=== PATIENT | female | born 1990 | race Caucasian/White ===

== ENCOUNTER 2017-12-03 19:03 | Emergency (ER) | payer MEDICAID ==
[~2017-12-03] VITALS: Ht 172.7 cm; Wt 75.0 kg
[2017-12-03 19:50] LABS: BASOPHILS % (AUTO) 0.3 % (0-1); EOSINOPHILS # (AUTO) 0.1 X10'3 (0-0.9); HEMATOCRIT 46.7 % (35.0-45.0); HEMOGLOBIN 16.2 g/dl (12.0-16.0); LYMPHOCYTES # (AUTO) 1.2 X10'3 (1.1-4.8); LYMPHOCYTES % (AUTO) 18.7 % (21-51); MEAN CORPUSCULAR HEMOGLOBIN 30.4 PG (27.0-31.0); MEAN CORPUSCULAR HGB CONC 34.6 % (33.0-36.5); MEAN CORPUSCULAR VOLUME 88.1 FL (78-98); MEAN PLATELET VOLUME 9.8 FL (7.4-10.4); MONOCYTES # (AUTO) 0.6 X10'3 (0-0.9); MONOCYTES % (AUTO) 9.3 % (2-12); NEUTROPHILS # (AUTO) 4.6 X10'3 (1.8-7.7); NEUTROPHILS % (AUTO) 70.7 % (42-75); PLATELET COUNT 263 X10'3 (140-440); RED BLOOD COUNT 5.31 X10'6 (4.20-5.60); RED CELL DISTRIBUTION WIDTH 12.7 % (11.5-14.5); WHITE BLOOD COUNT 6.6 X10'3 (4.5-11.0)
[2017-12-03] MEDS ORDERED: normal saline 1000ML IV soln IVB ONE (19:55)
[2017-12-03] MEDS ORDERED: ondansetron/PF 4mg/2ml inj IV ONE (19:55)
[2017-12-03] MEDS ORDERED: ketorolac trometh. 30mg/ml inj. IV ONE (19:55)
[2017-12-03 20:04] LABS: ALANINE AMINOTRANSFERASE 15 U/L (12-78); ALBUMIN 4.2 G/DL (3.4-5.0); ALKALINE PHOSPHATASE 88 IU/L (46-116); ANION GAP 9 (8-16); ASPARTATE AMINO TRANSFERASE 15 U/L (10-37); BILIRUBIN,TOTAL 0.4 MG/DL (0.1-1.0); BLOOD UREA NITROGEN 10 MG/DL (7-18); BUN/CREATININE RATIO 13.2 (6.6-38.0); CALCIUM 9.5 MG/DL (8.5-10.1); CHLORIDE 102 MMOL/L (99-107); CREATININE 0.76 MG/DL (0.40-0.90); GLUCOSE 100 MG/DL (70-104); POTASSIUM 3.4 MMOL/L (3.5-5.1); SODIUM 140 MMOL/L (135-145); TOTAL CARBON DIOXIDE 29.5 MMOL/L (24-32); TOTAL PROTEIN 8.3 G/DL (6.4-8.2); eGFR > 90 ML/MIN
[2017-12-03] MEDS ORDERED: ondansetron/PF 4mg/2ml inj IV PRN (20:40)
[2017-12-03] MEDS: morphine 4 MG/ML inj SYRINge IV PRN ×2 (20:41→21:50)
[2017-12-03 21:37] LABS: CLARITY,URINE CLEAR (Clear); COLOR,URINE YELLOW (Yellow); GLUCOSE, URINE 100 mg/dl (Neg); KETONES,URINE NEGATIVE (Neg); LEUKOCYTE ESTERASE ,URINE NEGATIVE (Neg); NITRITES, URINE NEGATIVE (Neg); OCCULT BLOOD,URINE TRACE-INTACT (Neg); PROTEIN,URINE NEGATIVE (Neg); URINE HCG NEGATIVE (NEG); UROBILINOGEN,URINE 0.2 E.U/dL (0.2-1.0)
[2017-12-03 21:59] LABS: BACTERIA,URINE FEW /HPF (Neg); RBC,URINE 0-2 /HPF (0-2); SQUAMOUS EPITHELIAL CELL,UR FEW /LPF (FEW); UA COLLECTION TYPE CLN CATCH MIDSTREAM; WBC,URINE 0-4 /HPF (0-4)
[2017-12-03] MEDS ORDERED: HYDR-3965 PO (22:18)
[2017-12-03] MEDS ORDERED: METH500T PO (22:18)
[2017-12-03 22:45] VITALS: BP 114/63
== END 2017-12-03 22:47 | disposition home or self-care (01) ==
LOC: ER 19:03
DX: R10.31 Right lower quadrant pain (principal); N20.0 Calculus of kidney
CPT/HCPCS: 36415; 74176; 80053; 81001; 81025; 85025; 96374; 96375; 96376; 99285; J1885; J2270; J2405; J7030

== ENCOUNTER 2018-08-03 12:30 | Emergency (ER) | payer MEDICAID ==
[~2018-08-03] VITALS: Ht 172.7 cm; Wt 71.0 kg
[~2018-08-03 12:30] MED LIST: METH500T PO
[2018-08-03 13:05] VITALS: BP 101/64
--- NOTE | 2018-08-03 14:09 | NUR ---
JOE PA AT CHAIR SIDE TO IRRIGATE LAC TO RT 5TH DIGIT, APPLY STERISTRIPS, PT LULU WELL
== END 2018-08-03 14:19 | disposition home or self-care (01) ==
LOC: ER 12:31
DX: S61.216A Laceration without foreign body of right little finger without damage to nail, initial encounter (principal); W45.8XXA Other foreign body or object entering through skin, initial encounter; Y93.89 Activity, other specified; Y92.89 Other specified places as the place of occurrence of the external cause; Y99.8 Other external cause status
CPT/HCPCS: 99282

== ENCOUNTER 2019-03-04 22:58 | Emergency (ER) | payer MEDICAID ==
[~2019-03-04] VITALS: Ht 172.7 cm; Wt 72.7 kg
[2019-03-04 22:59] VITALS: BP 116/80
[2019-03-04] MEDS ORDERED: normal saline 1000ML IV soln IVB ONE (23:25)
[2019-03-04 23:44] LABS: BASOPHILS % (AUTO) 0.5 % (0-1); EOSINOPHILS % (AUTO) 0.3 % (0-6); HEMATOCRIT 43.4 % (35.0-45.0); HEMOGLOBIN 14.7 g/dl (12.0-16.0); LYMPHOCYTES # (AUTO) 1.1 X10'3 (1.1-4.8); LYMPHOCYTES % (AUTO) 12.6 % (21-51); MEAN CORPUSCULAR HGB CONC 33.9 g/dL (33.0-36.5); MEAN CORPUSCULAR VOLUME 88.3 FL (78-98); MEAN PLATELET VOLUME 9.4 FL (7.4-10.4); MONOCYTES # (AUTO) 0.7 X10'3 (0-0.9); MONOCYTES % (AUTO) 7.5 % (2-12); NEUTROPHILS % (AUTO) 79.1 % (42-75); PLATELET COUNT 285 X10'3 (140-440); RED BLOOD COUNT 4.92 X10'6 (4.20-5.60); WHITE BLOOD COUNT 8.8 X10'3 (4.5-11.0)
[2019-03-05 00:07] LABS: ALANINE AMINOTRANSFERASE 16 U/L (12-78); ALBUMIN 4.2 G/DL (3.4-5.0); ALBUMIN/GLOBULIN RATIO 1.3 (1.1-1.5); ALKALINE PHOSPHATASE 75 IU/L (46-116); ANION GAP 9 (8-16); ASPARTATE AMINO TRANSFERASE 9 U/L (10-37); BILIRUBIN,TOTAL 0.3 MG/DL (0.1-1.0); BLOOD UREA NITROGEN 13 MG/DL (7-18); BUN/CREATININE RATIO 13.4 (6.6-38.0); CALCIUM 9.3 MG/DL (8.5-10.1); CHLORIDE 107 MMOL/L (99-107); CREATININE 0.97 MG/DL (0.40-0.90); GLUCOSE 135 MG/DL (70-104); MAGNESIUM 1.8 MG/DL (1.5-2.4); POTASSIUM 3.9 MMOL/L (3.5-5.1); SODIUM 140 MMOL/L (135-145); TOTAL CARBON DIOXIDE 23.7 MMOL/L (24-32); TOTAL PROTEIN 7.5 G/DL (6.4-8.2); eGFR 68 ML/MIN
[2019-03-05] MEDS ORDERED: LORazepam 2 mg/ml vial IV ONE (00:30)
[2019-03-05] MEDS ORDERED: magnesium oxide 400mg tablet PO ONE (01:00)
== END 2019-03-05 01:16 | disposition home or self-care (01) ==
LOC: ER 22:58
DX: T63.441A Toxic effect of venom of bees, accidental (unintentional), initial encounter (principal); I45.81 Long QT syndrome; F10.99 Alcohol use, unspecified with unspecified alcohol-induced disorder; Z87.442 Personal history of urinary calculi; Z88.1 Allergy status to other antibiotic agents; Z79.899 Other long term (current) drug therapy; Y92.89 Other specified places as the place of occurrence of the external cause; Y90.9 Presence of alcohol in blood, level not specified
CPT/HCPCS: 36415; 80053; 83735; 85025; 93005; 96374; 99284; J2060; J7030

== ENCOUNTER 2020-04-01 15:28 | Emergency (ER) | payer MEDICAID ==
[~2020-04-01] VITALS: Ht 172.7 cm; Wt 65.5 kg
[2020-04-01] MEDS ORDERED: ondansetron/PF 4mg/2ml inj IV ONE (16:00)
[2020-04-01] MEDS ORDERED: normal saline 1000ML IV soln IVB ONE (16:00)
[2020-04-01] MEDS ORDERED: ondansetron 4mg rapidly disintigrating tab PO ONE (16:00)
[2020-04-01] MEDS ORDERED: ketorolac trometh inj. 60 MG/2 ML VIAL IM ONE (16:00)
[2020-04-01] MEDS ORDERED: HYDROcodone/acetaminophen 10/325mg tab PO ONE (16:00)
[2020-04-01 16:27] LABS: BASOPHILS % (AUTO) 0.5 % (0-1); EOSINOPHILS # (AUTO) 0.2 X10'3 (0-0.9); HEMOGLOBIN 12.9 g/dl (12.0-16.0); LYMPHOCYTES # (AUTO) 1.6 X10'3 (1.1-4.8); LYMPHOCYTES % (AUTO) 15.5 % (21-51); MEAN CORPUSCULAR HEMOGLOBIN 28.8 PG (27.0-31.0); MEAN CORPUSCULAR VOLUME 87.2 FL (78-98); MEAN PLATELET VOLUME 7.9 FL (7.4-10.4); MONOCYTES # (AUTO) 1.3 X10'3 (0-0.9); MONOCYTES % (AUTO) 12.7 % (2-12); NEUTROPHILS % (AUTO) 69.3 % (42-75); PLATELET COUNT 305 X10'3 (140-440); RED BLOOD COUNT 4.47 X10'6 (4.20-5.60); RED CELL DISTRIBUTION WIDTH 12.5 % (11.5-14.5)
[2020-04-01 16:30] LABS: CLARITY,URINE TURBID (Clear); COLOR,URINE YELLOW (Yellow); GLUCOSE, URINE NEGATIVE (Neg); KETONES,URINE NEGATIVE (Neg); LEUKOCYTE ESTERASE ,URINE NEGATIVE (Neg); NITRITES, URINE NEGATIVE (Neg); OCCULT BLOOD,URINE LARGE (Neg); PH,URINE 5.5 (4.8-8.0); PROTEIN,URINE 30 mg/dl (Neg); UROBILINOGEN,URINE 0.2 E.U/dL (0.2-1.0)
[2020-04-01 16:31] LABS: URINE HCG NEGATIVE (NEG)
[2020-04-01 16:37] LABS: UA COLLECTION TYPE CLN CATCH MIDSTREAM
[2020-04-01 16:38] LABS: MUCUS STRANDS MANY /LPF (Neg); SQUAMOUS EPITHELIAL CELL,UR MANY /LPF (FEW)
[2020-04-01 16:40] LABS: BACTERIA,URINE FEW /HPF (Neg); CAL OXALATE CRYSTALS FEW /HPF (NEGATIVE); TRANSITIONAL EPI CELLS,URINE FEW /HPF; WBC,URINE 0-4 /HPF (0-4)
[2020-04-01 16:42] LABS: RBC,URINE TNTC /HPF (0-2)
[2020-04-01 16:42] LABS: ALANINE AMINOTRANSFERASE 17 U/L (12-78); ALBUMIN 3.7 G/DL (3.4-5.0); ALBUMIN/GLOBULIN RATIO 0.9 (1.1-1.5); ALKALINE PHOSPHATASE 73 IU/L (46-116); ANION GAP 7 (8-16); ASPARTATE AMINO TRANSFERASE 20 U/L (10-37); BILIRUBIN,TOTAL 0.4 MG/DL (0.1-1.0); BLOOD UREA NITROGEN 15 MG/DL (7-18); BUN/CREATININE RATIO 16.5 (6.6-38.0); CALCIUM 9.5 MG/DL (8.5-10.1); CHLORIDE 101 MMOL/L (99-107); CREATININE 0.91 MG/DL (0.40-0.90); GLUCOSE 94 MG/DL (70-104); LIPASE < 50 U/L (73-393); POTASSIUM 3.9 MMOL/L (3.5-5.1); SODIUM 140 MMOL/L (135-145); TOTAL CARBON DIOXIDE 31.9 MMOL/L (24-32); TOTAL PROTEIN 7.8 G/DL (6.4-8.2); eGFR 73 ML/MIN
[2020-04-01] MEDS: morphine 4 MG/ML inj SYRINge IV PRN ×3 (18:43→19:40)
--- NOTE | 2020-04-01 19:51 | NUR ---
DR DONAHUE UPDATED THAT PT PAIN IS IMPROVING AND NO NAUSEA AND THAT SHE IS ANXIOUS TO DC. HE WILL COMPLETE HER DC PAPERWORK SHORTLY. PTS SISTER AWAITING HER IN PARKING LOT. STABLE VS.
[2020-04-01] MEDS ORDERED: ONDA4TAB6 PO (19:56)
[2020-04-01] MEDS ORDERED: HYDR-4353 PO (19:56)
[2020-04-01] MEDS ORDERED: IBUP-1986 PO (19:56)
[2020-04-01 20:22] VITALS: BP 110/70
== END 2020-04-01 20:24 | disposition home or self-care (01) ==
LOC: ER 15:29
DX: N20.1 Calculus of ureter (principal); Z87.442 Personal history of urinary calculi; Z88.1 Allergy status to other antibiotic agents
CPT/HCPCS: 36415; 74176; 80053; 81001; 81025; 83690; 85025; 96361; 96374; 96375; 96376; 99284; J1885; J2270; J2405; J7030

== ENCOUNTER 2023-04-17 20:18 | Emergency (ER) | payer MEDICAID ==
[~2023-04-17] VITALS: Ht 172.7 cm; Wt 68.2 kg
[~2023-04-17 20:18] MED LIST changes: +IBUP-1986 PO; +ONDA4TAB6 PO
[2023-04-17] MEDS ORDERED: hydrOXYzine 25 MG tablet PO ONE (21:35)
[2023-04-17] MEDS ORDERED: HYDR-3686 PO (21:35)
[2023-04-17] MEDS ORDERED: ONDA4TAB12 PO (21:35)
[2023-04-17] MEDS ORDERED: ondansetron 4mg rapidly disintigrating tab PO ONE (21:35)
[2023-04-17 21:43] VITALS: BP 130/75; PULSE 97; RESP 17; TEMP 98.9; O2SAT 98
== END 2023-04-17 21:45 | disposition home or self-care (01) ==
LOC: ER 20:19
DX: F11.23 Opioid dependence with withdrawal (principal); F15.10 Other stimulant abuse, uncomplicated; G47.00 Insomnia, unspecified; L29.9 Pruritus, unspecified; F41.9 Anxiety disorder, unspecified; Z72.89 Other problems related to lifestyle; Z87.442 Personal history of urinary calculi; Z88.1 Allergy status to other antibiotic agents; Z79.899 Other long term (current) drug therapy
CPT/HCPCS: 99283; Q0177

== ENCOUNTER 2023-10-13 12:22 | Emergency (ER) | payer MEDICAID, OTHER ==
[~2023-10-13] VITALS: Ht 172.7 cm; Wt 84.0 kg
[~2023-10-13 12:22] MED LIST changes: +ONDA4TAB12 PO
[2023-10-13 12:28] VITALS: BP 120/80; PULSE 92; RESP 18; TEMP 98; O2SAT 98
[2023-10-13] MEDS ORDERED: CYCL-1 PO (12:32)
[2023-10-13] MEDS ORDERED: NAPR-56 PO (12:32)
== END 2023-10-13 13:13 | disposition home or self-care (01) ==
LOC: ER 12:22
DX: M54.2 Cervicalgia (principal); Z88.1 Allergy status to other antibiotic agents; V29.99XA Rider (driver) (passenger) of other motorcycle injured in unspecified traffic accident, initial encounter; Y93.89 Activity, other specified; Y92.89 Other specified places as the place of occurrence of the external cause; Y99.8 Other external cause status
CPT/HCPCS: 99283

== ENCOUNTER 2023-10-15 13:36 | Outpatient (CLI) | payer MEDICAID ==
[~2023-10-15 13:36] MED LIST changes: +CYCL-1 PO; +NAPR-56 PO
== END 2023-10-15 23:59 | disposition home or self-care (01) ==
LOC: RAD 13:36
PROVIDERS: ATTEND Family Medicine
DX: M54.2 Cervicalgia (principal)
CPT/HCPCS: 72050

== ENCOUNTER 2024-01-15 21:04 | Emergency (ER) | payer MEDICAID ==
[~2024-01-15] VITALS: Ht 172.7 cm; Wt 82.2 kg
[~2024-01-15 21:04] MED LIST changes: -NAPR-56 PO; +ONDA-243 PO; -ONDA4TAB12 PO
[2024-01-15] MEDS: LIDOcaine 1% 30ml preserv. free vial IJ STA (21:39)
[2024-01-15] MEDS ORDERED: DOXY150T9 PO (22:23)
[2024-01-15 22:48] VITALS: BP 108/68; PULSE 60; RESP 16; TEMP 98.5; O2SAT 98
== END 2024-01-15 22:52 | disposition home or self-care (01) ==
LOC: ER 21:05
DX: S60.941A Unspecified superficial injury of left index finger, initial encounter (principal); L02.512 Cutaneous abscess of left hand; Z88.1 Allergy status to other antibiotic agents; Z79.899 Other long term (current) drug therapy; Z79.1 Long term (current) use of non-steroidal anti-inflammatories (NSAID); Z87.442 Personal history of urinary calculi; Z72.89 Other problems related to lifestyle; X58.XXXA Exposure to other specified factors, initial encounter; Y93.89 Activity, other specified; Y92.89 Other specified places as the place of occurrence of the external cause; Y99.8 Other external cause status
CPT/HCPCS: 64450; 73120; 99284; A6222; A6258

== ENCOUNTER 2024-01-26 15:14 | Emergency (ER) | payer MEDICAID ==
[~2024-01-26] VITALS: Ht 172.7 cm; Wt 82.6 kg
[~2024-01-26 15:14] MED LIST changes: +DOXY150T9 PO
[2024-01-26 15:22] VITALS: TEMP 98.4
[2024-01-26] MEDS ORDERED: CHLO118L3 TOP (16:15)
[2024-01-26] MEDS ORDERED: SULF1TAB49 PO (16:15)
[2024-01-26] MEDS ORDERED: CEPH-585 PO (16:15)
[2024-01-26 16:18] VITALS: BP 130/72; PULSE 74; RESP 16; O2SAT 99
== END 2024-01-26 16:19 | disposition home or self-care (01) ==
LOC: ER 15:15
DX: S60.451A Superficial foreign body of left index finger, initial encounter (principal); L08.9 Local infection of the skin and subcutaneous tissue, unspecified; Z87.442 Personal history of urinary calculi; Z72.89 Other problems related to lifestyle; Z88.1 Allergy status to other antibiotic agents; Z79.899 Other long term (current) drug therapy; W45.8XXA Other foreign body or object entering through skin, initial encounter; Y93.89 Activity, other specified; Y92.89 Other specified places as the place of occurrence of the external cause; Y99.8 Other external cause status
CPT/HCPCS: 99283

== ENCOUNTER 2024-01-31 09:57 | Emergency (ER) | payer MEDICAID ==
[~2024-01-31] VITALS: Ht 172.7 cm; Wt 82.4 kg
[~2024-01-31 09:57] MED LIST changes: +CEPH-585 PO; +CHLO118L3 TOP; -DOXY150T9 PO; +SULF1TAB49 PO
[2024-01-31 11:25] VITALS: BP 116/71; PULSE 83; RESP 16; TEMP 98.1; O2SAT 100
== END 2024-01-31 11:29 | disposition home or self-care (01) ==
LOC: ER 09:57
DX: S60.45 Superficial foreign body of fingers (principal); Z88.1 Allergy status to other antibiotic agents; Z79.2 Long term (current) use of antibiotics; Z79.1 Long term (current) use of non-steroidal anti-inflammatories (NSAID); Z79.899 Other long term (current) drug therapy; W45.8XXD Other foreign body or object entering through skin, subsequent encounter
CPT/HCPCS: 99281; 99282; A6258

== ENCOUNTER 2024-03-31 21:27 | Emergency (ER) | payer MEDICAID ==
[~2024-03-31] VITALS: Ht 172.7 cm; Wt 80.6 kg
[~2024-03-31 21:27] MED LIST changes: -CEPH-585 PO; -SULF1TAB49 PO
[2024-03-31 21:30] VITALS: PULSE 66; RESP 18; TEMP 98.4; O2SAT 100
[2024-03-31] MEDS: cephalexin 250mg capsule PO ONE (21:48)
[2024-03-31] MEDS ORDERED: IBUP-1984 PO (21:49)
[2024-03-31] MEDS: ibuprofen tablet 400 MG TABLET PO ONE (21:49)
[2024-03-31] MEDS ORDERED: CEPH-585 PO (21:49)
== END 2024-03-31 21:55 | disposition home or self-care (01) ==
LOC: ER 21:28
DX: L98.0 Pyogenic granuloma (principal); Z88.1 Allergy status to other antibiotic agents; Z79.899 Other long term (current) drug therapy
CPT/HCPCS: 99283; A6258

== ENCOUNTER 2024-05-13 20:03 | Emergency (ER) | payer MEDICAID ==
[~2024-05-13] VITALS: Ht 172.7 cm; Wt 80.7 kg
[2024-05-13 20:14] VITALS: BP 106/65; PULSE 97; RESP 14; O2SAT 99
[2024-05-13 21:40] VITALS: TEMP 99.3
[2024-05-13 22:12] LABS: STREP A SCREEN NEGATIVE (Neg)
== END 2024-05-13 21:42 | disposition home or self-care (01) ==
LOC: ER 20:04
DX: J04.0 Acute laryngitis (principal); Z79.899 Other long term (current) drug therapy; Z79.1 Long term (current) use of non-steroidal anti-inflammatories (NSAID)
CPT/HCPCS: 87081; 87880; 99283

== ENCOUNTER 2024-07-08 15:35 | Emergency (ER) | payer MEDICAID ==
[~2024-07-08] VITALS: Ht 172.7 cm; Wt 80.2 kg
[2024-07-08] MEDS: dexamethasone sod phosphate 10mg/ml inj PO STA (17:34)
[2024-07-08] MEDS: ketorolac trometh 30MG/ML vial 30 MG/ML VIAL IM ONE (17:36)
[2024-07-08] MEDS ORDERED: BROM118S60 PO (17:40)
[2024-07-08] MEDS ORDERED: ACET1TAB96 PO ×2 (17:40→17:41)
[2024-07-08] MEDS ORDERED: ONDA-243 PO (17:40)
[2024-07-08 18:07] VITALS: BP 129/80; PULSE 88; RESP 17; TEMP 99.1; O2SAT 99
== END 2024-07-08 18:08 | disposition home or self-care (01) ==
LOC: ER 15:36
DX: J11.1 Influenza due to unidentified influenza virus with other respiratory manifestations (principal); Z79.1 Long term (current) use of non-steroidal anti-inflammatories (NSAID); Z79.899 Other long term (current) drug therapy; Z87.442 Personal history of urinary calculi; Z72.89 Other problems related to lifestyle; Z20.822 Contact with and (suspected) exposure to COVID-19
CPT/HCPCS: 36415; 71045; 87502; 87503; 87811; 96372; 99284; J1100; J1885

== ENCOUNTER 2024-11-15 18:41 | Emergency (ER) | payer MEDICAID ==
[~2024-11-15] VITALS: Ht 172.7 cm; Wt 69.9 kg
[~2024-11-15 18:41] MED LIST changes: +ACET1TAB96 PO; +BROM118S60 PO
[2024-11-15 18:54] VITALS: BP 100/62; PULSE 79; O2SAT 99
--- NOTE | 2024-11-15 20:05 | Physician Documentation ---
History of Present Illness ~ Chief Complaint: Shoulder pain Stated Complaint: SHOLDER PAIN Time Seen by MD: 19:45 Primary Medical Doctor: [facility] HPI This 34-year-old female with history of injury to right shoulder presents with increased pain to right shoulder worse in the posterior shoulder after aggravating it two days at work, patient reports severe tension in the shoulder and in the able to put my arm straight down. Patient reports pain limits range of motion shoulder. Patient reports no recent acute injury other than frequent use of lifting and rolling patient is at her work. Patient reports no numbness or tingling in hands or arm. Tetanus within 5 years?: Yes Medication Reconciliation Allergies: Coded Allergies: No Known Allergies (Unverified , 11/15/24) Scheduled Chlorhexidine Gluconate (Chlorhexidine Gluconate), 1 APPLIC TOP TID Cyclobenzaprine* (Cyclobenzaprine*), 1 TAB PO TID Cyclobenzaprine* (Cyclobenzaprine*), 1 TAB PO TID Ibuprofen (Ibuprofen), 1 TAB PO Q8H Ibuprofen (Ibuprofen), 1 TAB PO Q8H Lidocaine (Lidoderm), 1 PATCH TOP DAILY Methocarbamol (Robaxin), 1 TAB PO Q8H Ondansetron Hcl (Zofran), 1 TAB PO Q6H Scheduled PRN Acetaminophen W/Codeine #3 (Acetaminophen-Cod #3 Tablet), 1 EACH PO Q6H PRN for pain D-Methorphan Hb/P-Epd HCl/Bpm (Bromfed Dm Cough Syrup), 10-October ML PO Q4HPRN PRN for cough ONDANSETRON ODT 4mg tablet (Ondansetron Odt), 1 TABLET PO TID PRN for nausea/vomiting ONDANSETRON ODT 4mg tablet (Ondansetron Odt), 1 TAB PO Q6H PRN PRN for nausea/vomiting Past Medical History Past Medical History: Kidney Stones Past Surgical History: no surgical history Alcohol Use: Occasionally Drug Use: none Occupation: employed Review of Systems ROS Right shoulder pain as stated above in the HPI, otherwise all systems are reviewed and negative. Physical Exam Vital Signs: Temperature: 98.0, Source: Temporal, Heart Rate: 79, Respiratory Rate: 16, BP: 100/62, Pulse Oximetry: 99, Weight: 69.900 Oxygen Flow Rate: 0 Physical Exam VITALS: Reviewed and as above. GENERAL: Alert, nontoxic appearing, no apparent distress. RESPIRATORY: No increased work of breathing, no respiratory distress, speaking in full clear sentences MUSCULOSKELETAL: Right posterior shoulder and trapezius tender to palpation, trapezius muscle spasm, ROM limited by pain, no deformity Progress Results/Orders Results/Orders Orders - DIXON CHILDRESS Ortho Orders (11/15/24 ) Completed Orders - DIXON CHILDRESS Lidocaine 5% Patch (Lidoderm 5% Patch) (11/15/24 20:15) Cyclobenzaprine Tablet (Flexeril Tablet) (11/15/24 20:15) Ketorolac Trometh 15mg/Ml Vial (Toradol (11/15/24 20:15) Medications Received in ER Medications (Trade) Dose Ordered Sig/Linda Route PRN Reason Start Time Stop Time Status Last Admin Dose Admin (Lidoderm 5% Patch) 1 patch ONCE ONCE TP 11/15/24 20:15 11/15/24 20:16 DC 11/15/24 20:30 1 PATCH (Flexeril tablet) 10 mg ONCE ONCE PO 11/15/24 20:15 11/15/24 20:16 DC 11/15/24 20:30 10 MG (Toradol injection) 15 mg ONCE ONCE IM 11/15/24 20:15 11/15/24 20:17 DC 11/15/24 20:30 15 MG Vital Signs 11/15/24 11/15/24 11/15/24 18:54 20:30 20:41 Temp 98.0 98.0 Pulse 79 Resp 16 18 B/P (MAP) 100/62 Pulse Ox 99 O2 Flow Rate 0 Medical Decision Making Findings This 34-year-old female with a history of previous right shoulder injury presented with increased pain to her posterior right shoulder, exam was significant for tenderness and trapezius muscle spasm, limb was neurovascularly intact. Symptoms are consistent with soft tissue injury likely from aggravation of previous injury, the right patient's physical exam was benign vital signs stable. Patient was medicated for pain and appropriate for outpatient follow up, patient provided Rx for medications. Provided home care instructions, return to care instructions, and follow up instructions which she verbalized understanding of. Discussed plan with the patient is to have her follow up with primary care pro vider for referral to physical therapist which patient agrees to plan. Differential Dx:Considerations: Include: AC separation, Adhesive capsulitis, arthritis, Bicipital tendonitis, Calcific tendonitis, Cervical disc disease, Contusion, Dislocation, Fracture: Humerus, Fracture: Scapula, Fracture: Clavicle, Impingement syndrome, Myocardial infarction, Neurovascular Injury, Rotator cuff injury, SC dislocation, Sprain, Subacromial bursitis Departure Disposition: 01 HOME / SELF CARE / HOMELESS Impression: Primary Impression: Shoulder pain Qualified Codes: M25.511 - Pain in right shoulder Condition: Improved Discharge Instructions: RICE Therapy for Routine Care of Injuries, [id number], Shoulder Pain Additional Instructions: Please use the medications as prescribed as needed for pain. Please follow up with your primary care provider in the next few days as you will likely need a referral for physical therapist and possibly an orthopedic referral. Please return to the emergency department for any new or worsening concerning symptoms. Please do not take the Flexeril while taking narcotic pain medications or drinking alcohol, do not drive or operate heavy machinery while taking the Flexeril Take ibuprofen with food to avoid stomach upset. Please do not take ibuprofen, naproxen, or other NSAIDs for the next 12 hours as you received a dose of Toradol in the emergency department which replaces these medications. Referrals: NO PRIMARY CARE PROVIDER (PCP) Prescriptions Lidocaine (Lidoderm) 5 % Adh..patch 1 PATCH TOP DAILY for 10 Days, #10 PATCH 0 Refills may wear up to 12 hours Prov: DXION CHILDRESS 11/15/24 Ibuprofen (Ibuprofen) 800 Mg Tablet 1 TAB PO Q8H for pain for 10 Days, #30 TAB 0 Refills Prov: DIXON CHILDRESS 11/15/24 Cyclobenzaprine* (Cyclobenzaprine*) 10 Mg Tablet 1 TAB PO TID, #15 TAB Prov: DIXON CHILDRESS 11/15/24 Education Educated: Patient Educated regarding: diagnosis, treatment, prognosis, need for follow up Signature Scribe Signature: No scribe Attestation: The note accurately reflects work and decisions made by me.IVETT Fischer 11/16/24 02:24 DIXON CHILDRESS Nov 15, 2024 20:05
[2024-11-15] MEDS ORDERED: IBUP-1986 PO (20:14)
[2024-11-15] MEDS ORDERED: CYCL-1 PO (20:14)
[2024-11-15] MEDS ORDERED: LIDO700A32 TOP (20:14)
[2024-11-15 20:30] VITALS: RESP 18
[2024-11-15] MEDS: LIDOcaine 5% patch TP ONE (20:30)
[2024-11-15] MEDS: cyclobenzaprine 10mg tablet PO ONE (20:30)
[2024-11-15] MEDS: ketorolac trometh 15mg/ml vial 15 MG/ML ML IM ONE (20:30)
[2024-11-15 20:41] VITALS: TEMP 98
== END 2024-11-15 20:47 | disposition home or self-care (01) ==
LOC: ER 18:42
DX: M25.511 Pain in right shoulder (principal); Z87.440 Personal history of urinary (tract) infections
CPT/HCPCS: 96372; 99283; J1885; A4565

== ENCOUNTER 2024-11-21 09:38 | Emergency (ER) | payer MEDICAID ==
[~2024-11-21] VITALS: Ht 172.7 cm; Wt 53.8 kg
[~2024-11-21 09:38] MED LIST changes: +LIDO-52 TOP
[2024-11-21 09:45] VITALS: BP 97/70; PULSE 106; O2SAT 100
--- NOTE | 2024-11-21 10:03 | Physician Documentation ---
History of Present Illness ~ Chief Complaint: See Chief Complaint Stated Complaint: R SHOULDER PAIN Time Seen by MD: 10:37 Primary Medical Doctor: [facility] HPI 34-year-old female presents to the ED after recently being seen for right shoulder pain. She states that she was lifting something and felt a popand had increased pain and swelling in the right side and decreased range of motion as well. denies Any direct trauma Day of Onset: Nov 21, 2024 Tetanus within 5 years?: Yes Medication Reconciliation Allergies: Coded Allergies: No Known Allergies (Unverified , 11/15/24) Scheduled Chlorhexidine Gluconate (Chlorhexidine Gluconate), 1 APPLIC TOP TID Cyclobenzaprine* (Cyclobenzaprine*), 1 TAB PO TID Cyclobenzaprine* (Cyclobenzaprine*), 1 TAB PO TID Ibuprofen (Ibuprofen), 1 TAB PO Q8H Ibuprofen (Ibuprofen), 1 TAB PO Q8H Lidocaine (Lidoderm), 1 PATCH TOP DAILY Methocarbamol (Robaxin), 1 TAB PO Q8H Naproxen (Naproxen), 1 TAB PO Q12H Ondansetron Hcl (Zofran), 1 TAB PO Q6H Scheduled PRN Acetaminophen W/Codeine #3 (Acetaminophen-Cod #3 Tablet), 1 EACH PO Q6H PRN for pain D-Methorphan Hb/P-Epd HCl/Bpm (Bromfed Dm Cough Syrup), 10-October ML PO Q4HPRN PRN for cough ONDANSETRON ODT 4mg tablet (Ondansetron Odt), 1 TABLET PO TID PRN for nausea/vomiting ONDANSETRON ODT 4mg tablet (Ondansetron Odt), 1 TAB PO Q6H PRN PRN for nausea/vomiting Past Medical History Past Medical History: Kidney Stones Past Surgical History: no surgical history Alcohol Use: Occasionally Drug Use: none Occupation: employed Review of Systems All Other Systems at this time: Reviewed and Negative ROS As stated above in the HPI, otherwise all systems are reviewed and negative. Physical Exam Vital Signs: Temperature: 98.0, Source: Temporal, Heart Rate: 106, Respiratory Rate: 15, BP: 97/70, Pulse Oximetry: 100, Weight: 53.800 Physical Exam General: Alert, no apparent distress. Extremities: postive drop arm right side. decreased ROM Neurologic: Oriented x4. Psychiatric: Normal mood and affect. Skin: Normal color, warm and dry. No edema, no ecchymosis. Progress Results/Orders Results/Orders Completed Orders - ANTONINO KNIGHT NP Ketorolac Trometh 30mg/Ml Vial (Toradol (11/21/24 11:00) Medications Received in ER Medications (Trade) Dose Ordered Sig/Linda Route PRN Reason Start Time Stop Time Status Last Admin Dose Admin (Toradol inj. 30mg/ml) 30 mg ONCE ONCE IM 11/21/24 11:00 11/21/24 11:01 DC 11/21/24 11:23 30 MG Vital Signs 11/21/24 11/21/24 11/21/24 09:45 11:23 11:25 Temp 98.0 98.0 Pulse 106 Resp 15 16 B/P (MAP) 97/70 Pulse Ox 100 Medical Decision Making Findings Patient presents with suspected to have rotator cuff tendonitis. And treat her for pain and inflammation while she is here however of my struggling recommend prescription for physical therapy to alleviate her symptoms this is for the patient and she does have and primary care mild provider to obtain that referral Differential Dx:Considerations: Include: AC separation, Adhesive capsulitis, arthritis, Bicipital tendonitis, Calcific tendonitis, Cervical disc disease, Contusion, Dislocation, Fracture: Humerus, Fracture: Scapula, Fracture: Clavicle, Gallbladder Disease, Hematoma, Impingement syndrome, Myocardial infarction, Neurovascular Injury, Rotator cuff injury, SC dislocation, Sprain, Subacromial bursitis, other Departure Disposition: HOME / SELF CARE / HOMELESS Impression: Primary Impression: Shoulder pain Additional Impression: Rotator cuff (capsule) sprain Condition: Stable Discharge Instructions: Shoulder Pain, [id number] Referrals: NO PRIMARY CARE PROVIDER (PCP) Prescriptions Naproxen (Naproxen) 500 Mg Tablet 1 TAB PO Q12H, #20 TAB Prov: ANTONINO KNIGHT NP 11/21/24 Signature Scribe Signature: b Attestation: The note accurately reflects work and decisions made by me.Antonino Knight - LITA 11/21/24 17:41 ANTONINO KNIGHT NP Nov 21, 2024 10:03
[2024-11-21] MEDS ORDERED: NAPR-56 PO (11:01)
--- NOTE | 2024-11-21 11:08 | RADIOLOGY REPORT ---
CLINICAL INDICATION: Shoulder Pain TECHNIQUE: 1 radiographic views of the right shoulder were obtained. Comparison: None FINDINGS/IMPRESSION: There is no evidence of acute fracture or dislocation. The visualized joint space is well maintained. The alignment is anatomical. There is no radiopaque foreign body.
[2024-11-21 11:23] VITALS: RESP 16
[2024-11-21] MEDS: ketorolac trometh 30MG/ML vial 30 MG/ML VIAL IM ONE (11:23)
[2024-11-21 11:25] VITALS: TEMP 98
== END 2024-11-21 11:29 | disposition home or self-care (01) ==
LOC: ER 09:38
DX: S43.421A Sprain of right rotator cuff capsule, initial encounter (principal); M25.511 Pain in right shoulder; Z79.899 Other long term (current) drug therapy; Z72.89 Other problems related to lifestyle; Z87.442 Personal history of urinary calculi; X58.XXXA Exposure to other specified factors, initial encounter; Y93.89 Activity, other specified; Y92.89 Other specified places as the place of occurrence of the external cause; Y99.8 Other external cause status
CPT/HCPCS: 73030; 96372; 99283; J1885

== ENCOUNTER 2025-01-15 14:09 | Emergency (ER) | payer MEDICAID ==
[~2025-01-15] VITALS: Ht 172.7 cm; Wt 67.1 kg
[2025-01-15 14:18] VITALS: TEMP 98.3
[2025-01-15 17:22] LABS: LEUKOCYTE ESTERASE ,URINE TRACE (Neg); NITRITES, URINE NEGATIVE (Neg); OCCULT BLOOD,URINE LARGE (Neg); URINE HCG NEGATIVE (NEG)
[2025-01-15 17:27] LABS: UA COLLECTION TYPE CLN CATCH MIDSTREAM
[2025-01-15 17:28] LABS: MUCUS STRANDS FEW /LPF (Neg); SQUAMOUS EPITHELIAL CELL,UR MODERATE /LPF (FEW)
--- NOTE | 2025-01-15 17:57 | Physician Documentation ---
History of Present Illness ~ Chief Complaint: Vaginal Bleeding Stated Complaint: BLOOD IN URINE/ABD PAIN Time Seen by MD: 17:49 Primary Medical Doctor: [facility] HPI 34-year-old female who presents with some difficulty with urination and blood in her urine. Patient states that she has noticed this over the past three days. She reports that she has some discomfort when she urinates and she has noticed some spots of blood in her urine. She denies any karely burning when she urinates. Reports that this kind of feels like a UTI but it is a little bit different from other ones that she has had in the past. She just finished her menstrual. About eight days ago. Denies any vaginal bleeding but reports that she is feeling some cramping and pain in her lower abdomen. Denies any fever, chills or any other associated symptoms. Medication Reconciliation Allergies: Coded Allergies: No Known Allergies (Unverified , 01/15/25) Scheduled Cephalexin Monohydrate (Cephalexin), 1 CAP PO Q12H Chlorhexidine Gluconate (Chlorhexidine Gluconate), 1 APPLIC TOP TID Cyclobenzaprine* (Cyclobenzaprine*), 1 TAB PO TID Cyclobenzaprine* (Cyclobenzaprine*), 1 TAB PO TID Ibuprofen (Ibuprofen), 1 TAB PO Q8H Ibuprofen (Ibuprofen), 1 TAB PO Q8H Lidocaine (Lidoderm), 1 PATCH TOP DAILY Methocarbamol (Robaxin), 1 TAB PO Q8H Ondansetron Hcl (Zofran), 1 TAB PO Q6H Scheduled PRN Acetaminophen W/Codeine #3 (Acetaminophen-Cod #3 Tablet), 1 EACH PO Q6H PRN for pain D-Methorphan Hb/P-Epd HCl/Bpm (Bromfed Dm Cough Syrup), 10-October ML PO Q4HPRN PRN for cough ONDANSETRON ODT 4mg tablet (Ondansetron Odt), 1 TABLET PO TID PRN for nausea/vomiting ONDANSETRON ODT 4mg tablet (Ondansetron Odt), 1 TAB PO Q6H PRN PRN for n ausea/vomiting Past Medical History Past Medical History: No Pertinent History, Kidney Stones Past Surgical History: no surgical history Alcohol Use: Occasionally Drug Use: none Occupation: employed Review of Systems All Other Systems at this time: Reviewed and Negative Physical Exam Vital Signs: Temperature: 98.3, Source: Oral, Heart Rate: 64, Respiratory Rate: 18, BP: 108/62, Pulse Oximetry: 100, Weight: 67.100 Oxygen Flow Rate: 0 Physical Exam I have reviewed the triage vitals. CONST: Well developed and well nourished. In no acute distress HENT: Head Atraumatic EYES: Pupils are equal, round and reactive to light. Normal conjunctiva NECK: Normal range of motion. Supple. CARDIO: Normal rate and regular rhythm. No murmurs, rubs, or gallops. S1, S2. PULM/CHEST: No respiratory distress. Lungs clear to auscultation. No wheeze ABD: Slight tenderness to palpation over her suprapubic area. Nondistended. Bowel sounds normal. No guarding. : Exam deferred MSK: No edema. No deformity. NEURO: Alert and oriented to person, place and time. Moving all extremities SKIN: Warm and dry. PSYCH: Normal mood and affect. Good eye contact. Progress Results/Orders Results/Orders Orders - JOSE ALEJANDRO HERNANDEZ MD Cult Urine + [address] (01/15/25 17:29) Completed Orders - JOSE ALEJANDRO HERNANDEZ MD Hcg, Ur Ql (01/15/25 16:57) Ua W/Microscopic, Cult If Ind (01/15/25 14:28) Cbc/Diff (01/15/25 17:32) Pt Inr (01/15/25 17:32) PTT (01/15/25 17:32) CMP (01/15/25 17:32) Hcg Serum Qt (01/15/25 17:32) Ceftriaxone/X5q-Esmkadan 1gm (Rocephin 1 (01/15/25 17:55) Vital Signs 01/15/25 01/15/25 01/15/25 01/15/25 14:18 17:51 18:58 18:58 Temp 98.3 Pulse 75 64 55 Resp 18 18 18 18 B/P (MAP) 98/59 108/62 (77) 104/67 (79) Pulse Ox 98 100 99 O2 Flow Rate 0 0 0 Laboratory Tests Test 01/15/25 14:28 01/15/25 17:40 Urine Specimen Description Cln catch midstream Urine Color Yellow Urine Clarity Cloudy Urine pH 6.0 Urine Specific [place] 1.025 Urine Protein 30 H Urine Glucose (UA) Negative Urine Ketones Negative Urine Occult Blood Large H Urine Nitrite Negative Urine Bilirubin Negative Urine Urobilinogen 0.2 Urine Leukocyte Esterase Trace H Urine RBC Tntc Urine WBC Tntc H Urine Squamous Epithelial Cells Moderate Urine Bacteria 2+ Urine Mucus Few Urine Culture Indicated Indicated Volume Urine Centrifuged 10 ml Urine HCG, Qualitative Negative Urine Comment White Blood Count 6.3 Red Blood Count 4.21 Hemoglobin 12.2 Hematocrit 35.9 Mean Corpuscular Volume 85.2 Mean Corpuscular Hemoglobin 29.0 Mean Corpuscular Hemoglobin Concent 34.0 Red Cell Distribution Width 13.9 Platelet Count 260 Mean Platelet Volume 9.6 Neutrophils (%) (Auto) 60.7 Lymphocytes (%) (Auto) 26.7 Monocytes (%) (Auto) 10.0 Eosinophils (%) (Auto) 1.7 Basophils (%) (Auto) 0.9 Neutrophils # (Auto) 3.8 Lymphocytes # (Auto) 1.7 Monocytes # (Auto) 0.6 Eosinophils # (Auto) 0.1 Basophils # (Auto) 0.1 CBC Comment Prothrombin Time 11.3 INR International Normalized Ratio 1.1 Activated Partial Thromboplast Time 27 Coagulation Comments Sodium Level 140 Potassium Level 3.5 Chloride Level 107 Carbon Dioxide Level 27.8 Anion Gap 5 L Blood Urea Nitrogen 10 Creatinine 0.73 Estimated GFR/1.73 m2 > 90 BUN/Creatinine Ratio 13.7 Glucose Level 91 Calcium Level 8.5 Total Bilirubin 0.5 Aspartate Amino Transf (AST/SGOT) 13 Alanine Aminotransferase (ALT/SGPT) 14 Alkaline Phosphatase 53 Total Protein 6.8 Albumin 3.7 Globulin 3.1 Albumin/Globulin Ratio 1.2 HCG Beta Subunit < 1.0 Chemistry Comments Microbiology Date/Time Source Procedure Growth Status 01/15/25 17:29 Urine Clean Catch Midstream Urine Culture - Preliminary Culture received. Resulted Medical Decision Making Additional Comment 34-year-old female presenting with what likely appears to be a urinary tract infection. She has had some mild hematuria and discomfort with urination. There is no indication of any vaginal bleeding as the patient denies this. Her urinalysis does indicate large occult blood as well as WBCs and leukocyte yessenia rase which is suggestive of a urinary tract infection and this also is consistent with her clinical history. At this point in time I will treat her for this. She was given 1 g of IV ceftriaxone in the ED. I will discharge her with a five day course of cephalexin 500 mg b.i.d.. I advised her to take the medication and drink plenty of fluids and monitor her symptoms for improvement and resolution. Follow up with PCP in the next 2-5 days as needed. Return to the ED with any acutely worsening symptoms. Departure Disposition: HOME / SELF CARE / HOMELESS Impression: Primary Impression: UTI (urinary tract infection) Condition: Improved Discharge Instructions: Urinary Tract Infection, Adult Referrals: NO PRIMARY CARE PROVIDER (PCP) Prescriptions Cephalexin Monohydrate (Cephalexin) 500 Mg Capsule 1 CAP PO Q12H for 5 Days, #10 CAP Prov: JOSE ALEJANDRO HERNANDEZ MD 01/15/25 Signature Scribe Signature: 1 Attestation: 1 JOSE ALEJANDRO HERNANDEZ MD Jan 15, 2025 17:57
[2025-01-15 17:58] LABS: MEAN PLATELET VOLUME 9.6 FL (7.4-10.4); RED CELL DISTRIBUTION WIDTH 13.9 % (11.5-14.5)
[2025-01-15 18:13] LABS: APTT 27 SECONDS (22-32); INR 1.1 INR
[2025-01-15 18:16] LABS: CREATININE 0.73 MG/DL (0.40-0.90); TOTAL CARBON DIOXIDE 27.8 MMOL/L (24-32); eCRCL 110 ML/MIN; eGFR > 90 ML/MIN
[2025-01-15] MEDS: CefTRIAXone/D5W-Rocephin 1gm 50 ML IV ONE (18:25)
[2025-01-15] MEDS ORDERED: CEPH500C2 PO (18:43)
[2025-01-15 18:58] VITALS: BP 104/67; PULSE 55; RESP 18; O2SAT 99
== END 2025-01-15 19:16 | disposition home or self-care (01) ==
LOC: ER 14:09
DX: N39.0 Urinary tract infection, site not specified (principal); N93.9 Abnormal uterine and vaginal bleeding, unspecified; Z79.899 Other long term (current) drug therapy; Z72.89 Other problems related to lifestyle; Z87.442 Personal history of urinary calculi
CPT/HCPCS: 36415; 80053; 81001; 81025; 84702; 85025; 85610; 85730; 87088; 96365; 99284; J0696; J7030; J7050

== ENCOUNTER → 2025-02-23 | Outpatient (CLI) | payer MEDICAID ==
--- NOTE | 2025-02-23 18:29 | RADIOLOGY REPORT ---
EXAM: MR MRI UPPER EXTREMITY RIGHT INDICATION: PAIN IN RIGHT SHOULDER TECHNIQUE: Multiplanar, multisequence MR images of the right shoulder were obtained in the absence of gadolinium contrast material. COMPARISON: DI SHOULDER, COMPLETE (MIN 2 VWS) on DOS: 11/21/24 FINDINGS: [CORACOACROMIAL ARCH]: Elevation of the distal clavicle relative to the lateral acromion. Lateral acromial downsloping. Correlate for subacromial /subdeltoid impingement and prior acromioclavicular separation injury. Intact coracoclavicular ligaments. Intact coracoacromial ligaments. No subacromial/muñoz bdeltoid bursal fluid. [ROTATOR CUFF]: Mild tendinosis of the superior rotator cuff. [BICEPS TENDON]: Intact without tenosynovitis. [LABRUM]: Intact. [CARTILAGE]: No measurable cartilage defect. [GLENOHUMERAL JOINT]: No joint effusion. No intra-articular body. [BONES]: No acute fracture, osseous contusion, or aggressive focal osseous lesion. [MUSCLES]: Normal muscle bulk of the rotator cuff muscles. indeterminate area of low T1, low T2 signal along the anterior to posterior fibers of the myotendinous junction of the deltoid of indeterminate etiology consideration for sequelae of prior injury and subsequent scarring/ fibrosis versus sequelae of chronic repetitive use and subsequent thickening. [NEUROVASCULAR/LYMPH NODES]: Normal. [OTHER]: None. IMPRESSION: 1. Elevation of the distal clavicle relative to the lateral acromion. 2. Lateral acromial downsloping. 3. Correlate for subacromial /subdeltoid impingement and prior acromioclavicular separation injury. 4. Indeterminate area of low T1, low T2 signal along the anterior to posterior fibers of the myotendinous junction of the deltoid of indeterminate etiology consideration for sequelae of prior injury and subsequent scarring/ fibrosis versus sequelae of chronic repetitive use and subsequent thickening.
== END | disposition home or self-care (01) ==
LOC: MRI02 13:00
PROVIDERS: ATTEND Surgery
DX: M89.311 Hypertrophy of bone, right shoulder (principal); M25.511 Pain in right shoulder
CPT/HCPCS: 73221

== ENCOUNTER 2025-06-04 11:50 | Emergency (ER) | payer MEDICAID ==
[~2025-06-04] VITALS: Ht 172.7 cm; Wt 70.7 kg
--- NOTE | 2025-06-04 12:09 | ELECTROCARDIOGRAPH REPORT ---
[facility] Test Date: 2025-06-04 Test Time: 11:57:14 Pat Name: LINDA HAMPTON Department: EMERGENCY ROOM [id number] Room: Gender: F Pathology Teacher: JAE : 1990 Requested By: JULITO DON Order Number: [id number] Reading MD: Dr. Jaylan Velasquez Measurements Intervals [place] Rate: 77 P: 22 CO: 160 QRS: 96 QRSD: 87 T: 5 QT: 392 QTc: 444 Interpretive Statements Sinus rhythm Borderline right axis deviation Borderline T wave abnormalities Electronically Signed On 06-06-2025 21:14:[address] Jaylan Velasquez Please click the below link to view image of tracing.
--- NOTE | 2025-06-04 12:37 | RADIOLOGY REPORT ---
CHEST RADIOGRAPH INDICATION: CP TECHNIQUE: DI CHEST,SINGLE VIEW Comparison: None FINDINGS: The cardiac silhouette is unremarkable. The lungs demonstrate no pulmonary airspace consolidation. The pulmonary vasculature is unremarkable. There is no pleural effusion. There is no pneumothorax. IMPRESSION: No pulmonary airspace consolidation.
[2025-06-04 12:39] LABS: MEAN PLATELET VOLUME 9.5 FL (7.4-10.4); RED CELL DISTRIBUTION WIDTH 15.3 % (11.5-14.5)
[2025-06-04 12:57] LABS: CREATININE 0.72 MG/DL (0.40-0.90); PRO BRAIN NATRIURETIC PEPTIDE < 30 PG/ML (0-125); TOTAL CARBON DIOXIDE 29.3 MMOL/L (24-32); eCRCL 111 ML/MIN; eGFR > 90 ML/MIN
--- NOTE | 2025-06-04 12:59 | Physician Documentation ---
History of Present Illness General Chief Complaint: Syncope Stated Complaint: SYNCOPAL EPISODE/CHEST PAIN Time Seen by MD: 12:41 [facility] Mode of Arrival: Dropped Off History of Present Illness Initial Comments 34 year old female presents to the emergency department for complaints of syncope that happened this morning. Patient states that for the last six months she has had episodes where she feels like she is going to pass out. She had an episode this morning where she had actually passed out which had not happened before. She states that her vision will blur and her ears will ring with a headache. Patient states that she also felt a flutter of chest pain which is new as well as shortness of breath. Medication Reconciliation Allergies: Coded Allergies: No Known Allergies (Unverified , 06/04/25) Scheduled Chlorhexidine Gluconate (Chlorhexidine Gluconate), 1 APPLIC TOP TID Cyclobenzaprine* (Cyclobenzaprine*), 1 TAB PO TID Cyclobenzaprine* (Cyclobenzaprine*), 1 TAB PO TID Ibuprofen (Ibuprofen), 1 TAB PO Q8H Ibuprofen (Ibuprofen), 1 TAB PO Q8H Lidocaine (Lidoderm), 1 PATCH TOP DAILY Methocarbamol (Robaxin), 1 TAB PO Q8H Ondansetron Hcl (Zofran), 1 TAB PO Q6H Scheduled PRN Acetaminophen W/Codeine #3 (Acetaminophen-Cod #3 Tablet), 1 EACH PO Q6H PRN for pain D-Methorphan Hb/P-Epd HCl/Bpm (Bromfed Dm Cough Syrup), 10-October ML PO Q4HPRN PRN for cough ONDANSETRON ODT 4mg tablet (Ondansetron Odt), 1 TABLET PO TID PRN for nausea/vomiting ONDANSETRON ODT 4mg tablet (Ondansetron Odt), 1 TAB PO Q6H PRN PRN for nausea/vomiting Past Medical History Past Medical History: No Pertinent History, Kidney Stones Past Surgical History: no surgical history Alcohol Use: Occasionally Drug Use: none Occupation: employed Review of Systems All Other Systems at this time: Reviewed and Negative ROS Patient was asked, but denied any other symptoms. All other systems are negative other than those mentioned above. Physical Exam Physical Exam Vital Signs: RN Vital Signs have been reviewed: Yes, Temperature: 98.4, Source: Temporal, Heart Rate: 87, Respiratory Rate: 16, BP: 123/70, Pulse Oximetry: 100, Weight: 70.700 Oxygen Flow Rate: 0 Pulse Oximetry Reflects: adequate oxygenation Physical Exam VITALS: Reviewed and as above. GENERAL: Alert, no apparent distress. HEENT: Normocephalic, atraumatic. PERRL, EOMI. Dry mucosa, no erythema. RESPIRATORY: Lungs clear, normal breath sounds, no respiratory distress. CHEST: No accessory muscle use, no retractions. CV: Regular rate and rhythm. No edema, no murmur, No: JVD GI: Soft, non-tender, bowel sounds present. No rebound, guarding, or rigidity. BACK: No CVA tenderness, no swelling. MUSCULOSKELETAL: No deformities, no edema SKIN: Warm and dry, no rash. NEURO: Oriented x4. No motor or sensory deficit. PSYCH: Normal mood and affect, no agitation. Progress Results/Orders Results/Orders Orders - JULITO DON MD Chest,Single View (06/04/25 12:19) Monitor (06/04/25 12:07) Saline Lock (06/04/25 12:07) Oxygen (06/04/25 12:07) Completed Orders - JULITO DON MD Chest,Single View (06/04/25 12:19) Cbc/Diff (06/04/25 12:07) BMP (06/04/25 12:07) PBNP (06/04/25 12:07) Electrocardiogram (06/04/25 12:07) Hs Troponin I W Calculations (06/04/25 12:07) Hs Troponin I W Calculations (06/04/25 14:07) Vital Signs 06/04/25 06/04/25 06/04/25 06/04/25 12:00 12:39 13:07 14:27 Temp 98.4 98.4 98.4 Pulse 87 75 75 Resp 16 20 18 B/P (MAP) 123/70 116/82 (93) 112/80 Pulse Ox 100 100 95 O2 Flow Rate 0 0 Laboratory Tests Test 06/04/25 12:05 06/04/25 14:23 White Blood Count 4.2 L Red Blood Count 4.82 Hemoglobin 13.1 Hematocrit 41.0 Mean Corpuscular Volume 85.0 Mean Corpuscular Hemoglobin 27.2 Mean Corpuscular Hemoglobin Concent 32.0 L Red Cell Distribution Width 15.3 H Platelet Count 280 Mean Platelet Volume 9.5 Neutrophils (%) (Auto) 66.1 Lymphocytes (%) (Auto) 25.8 Monocytes (%) (Auto) 5.4 Eosinophils (%) (Auto) 1.9 Basophils (%) (Auto) 0.8 Neutrophils # (Auto) 2.8 Lymphocytes # (Auto) 1.1 Monocytes # (Auto) 0.2 Eosinophils # (Auto) 0.1 Basophils # (Auto) 0.0 CBC Comment Sodium Level 142 Potassium Level 4.1 Chloride Level 106 Carbon Dioxide Level 29.3 Anion Gap 7 L Blood Urea Nitrogen 10 Creatinine 0.72 Estimated GFR/1.73 m2 > 90 BUN/Creatinine Ratio 13.9 Glucose Level 139 H Calcium Level 8.7 Troponin I High Sensitivity < 4 L < 4 L Troponin I High Sens Percent Delta Troponin I Hi Sens Absolute Change Pro-B-Type Natriuretic Peptide < 30 Albumin 4.0 Chemistry Comments EKG/XRAY/CT/US/VASC/MRI EKG : Additional Comment 1157: [facility] interpreted the EKG to show a normal sinus rhythm at a rate of 77 beats per minute, normal axis, nonspecific ST wave changes. Chest X-Ray : Additional Comments CHEST RADIOGRAPH INDICATION: CP TECHNIQUE: DI CHEST,SINGLE VIEW Comparison: None FINDINGS: The cardiac silhouette is unremarkable. The lungs demonstrate no pulmonary airspace consolidation. The pulmonary vasculature is unremarkable. There is no pleural effusion. There is no pneumothorax. IMPRESSION: No pulmonary airspace consolidation. Electronically Signed by:KATRIN HIGGINS MD Date & Time: 06/04/25 4509 Reviewed by [facility] Departure Time of Disposition: 13:54 Disposition: 01 HOME / SELF CARE / HOMELESS Impression: Primary Impression: Syncope Condition: Stable Discharge Instructions: Syncope, Adult Departure Forms: Excuse form Work or School Excused From: Work Excuse beginning now through the following date: Jun 04, 2025 Referrals: NO PRIMARY CARE PROVIDER (PCP) JERAD CALDERON MD Education Educated: Patient Educated regarding: diagnosis, treatment, prognosis, need for follow up Signature Scribe Signature: Scribed by [facility] Jun 04, 2025 12:59
[2025-06-04 14:27] VITALS: BP 112/80; PULSE 75; RESP 18; TEMP 98.4; O2SAT 95
== END 2025-06-04 14:31 | disposition home or self-care (01) ==
LOC: ER 11:50
DX: R55 Syncope and collapse (principal); Z79.899 Other long term (current) drug therapy; Z72.89 Other problems related to lifestyle; Z87.442 Personal history of urinary calculi
CPT/HCPCS: 36415; 71045; 80048; 83880; 84484; 85025; 93005; 99285